=== PATIENT | male | born 1990 | race Caucasian/White ===

== ENCOUNTER 2017-03-25 00:14 | Emergency (ER) | payer SELFPAY | END 2017-03-25 00:30 | disposition left against medical advice (07) | LOC: D.ER 00:14 | DX: F19.939 Other psychoactive substance use, unspecified with withdrawal, unspecified (principal) ==

== ENCOUNTER 2017-06-13 10:49 | Emergency (ER) | payer SELFPAY | END 2017-06-13 14:35 | disposition home or self-care (01) | LOC: D.ER 10:49 | DX: T14.8 Other injury of unspecified body region (principal); V86.59XA Driver of other special all-terrain or other off-road motor vehicle injured in nontraffic accident, initial encounter; Y93.89 Activity, other specified; Y92.89 Other specified places as the place of occurrence of the external cause; S80.01XA Contusion of right knee, initial encounter; S16.1XXA Strain of muscle, fascia and tendon at neck level, initial encounter; F17.200 Nicotine dependence, unspecified, uncomplicated ==

== ENCOUNTER 2017-08-19 10:11 | Emergency (ER) | payer SELFPAY ==
[2017-08-19 11:53] LABS: APPEARANCE TURBID (CLEAR); BACTERIA MANY /hpf (NONE SEEN); BILIRUBIN NEGATIVE (NEGATIVE); CALCIUM OXALATE CRYSTALS 0-5 /hpf (NONE SEEN); COLOR DK YELLOW (YELLOW); EPITHELIAL CELLS 0-5 /hpf (0-5); GLUCOSE NEGATIVE (NEGATIVE); KETONE NEGATIVE (NEGATIVE); MUCUS <1+ /lpf (NONE SEEN); NITRITE NEGATIVE (NEGATIVE); PROTEIN NEGATIVE (NEGATIVE); SPECIFIC GRAVITY 1.025 (1.005-1.020); WHITE CELLS - URINE >50 /hpf (0-5)
== END 2017-08-19 11:30 | disposition home or self-care (01) ==
LOC: D.ER 10:11
PROVIDERS: Physician Assistant
DX: N34.2 Other urethritis (principal); F17.200 Nicotine dependence, unspecified, uncomplicated

== ENCOUNTER 2018-06-11 10:27 | Emergency (ER) | payer OTHER ==
[~2018-06-11] VITALS: Ht 182.9 cm; Wt 68.2 kg
[2018-06-11 10:32] VITALS: Ht 182.9 cm; Wt 68.2 kg
[2018-06-11] MEDS ORDERED: PENICILLIN V P500 MG PO (13:34)
[2018-06-11] MEDS ORDERED: IBUPROFEN800 MG PO (13:34)
[2018-06-11] MEDS ORDERED: CYCLOBENZAPRINE10 MG PO (13:34)
[2018-06-11] MEDS ORDERED: ACETAMINOPHEN500 M1 PO (13:34)
[2018-06-11 13:43] VITALS: BP 125/78
== END 2018-06-11 13:57 | disposition home or self-care (01) ==
LOC: D.ER 10:27
DX: S02.5XXA Fracture of tooth (traumatic), initial encounter for closed fracture (principal); X58.XXXA Exposure to other specified factors, initial encounter; Y93.89 Activity, other specified; Y92.89 Other specified places as the place of occurrence of the external cause; K04.7 Periapical abscess without sinus; K08.89 Other specified disorders of teeth and supporting structures; F17.200 Nicotine dependence, unspecified, uncomplicated

== ENCOUNTER 2018-06-12 08:22 | Emergency (ER) | payer OTHER ==
[~2018-06-12] VITALS: Ht 182.9 cm; Wt 68.2 kg
[~2018-06-12 08:22] MED LIST: ACETAMINOPHEN500 M1 PO; CYCLOBENZAPRINE10 MG PO; IBUPROFEN800 MG PO; PENICILLIN V P500 MG PO
[2018-06-12 08:33] VITALS: BP 124/87; Ht 182.9 cm; Wt 68.2 kg
== END 2018-06-12 09:33 | disposition other institution (70) ==
LOC: D.ER 08:22
DX: K04.7 Periapical abscess without sinus (principal); K08.89 Other specified disorders of teeth and supporting structures; F17.200 Nicotine dependence, unspecified, uncomplicated

== ENCOUNTER 2018-12-30 09:27 | Emergency (ER) | payer OTHER ==
[~2018-12-30] VITALS: Ht 182.9 cm; Wt 70.5 kg
[2018-12-30 09:35] VITALS: Ht 182.9 cm; Wt 70.5 kg
[2018-12-30 10:11] LABS: BASOPHILS 0.1 % (0-2); HEMATOCRIT 39.7 % (42.0-54.0); HEMOGLOBIN 13.6 g/dL (13.5-17.5); IMMATURE GRANULOCYTES 0.1 % (0-5); LYMPHOCYTES 17.9 % (15-50); MCH 29.4 pg (26.0-34.0); MCHC 34.3 g/dL (31.0-37.0); MCV 85.7 fL (80.0-100.0); MEAN PLATELET VOLUME 10.1 fL (7.4-10.4); MONOCYTES 10.2 % (2-11); NEUTROPHILS 70.7 % (40-80); PLATELET COUNT 201 10x3/uL (130-400); RBC 4.63 10x6/uL (4.20-6.10); RDW 13.3 % (11.5-14.5); WBC 14.9 10x3/uL (4.8-10.8)
[2018-12-30 10:18] LABS: ALBUMIN 4.1 g/dL (3.4-5.0); ALKALINE PHOSPHATASE 60 U/L (46-116); ALT (SGPT) 26 U/L (10-68); BILIRUBIN - TOTAL 0.74 mg/dL (0.2-1.3); CALC OSMOLALITY 279 mosm/kg (275-300); CALCIUM 8.9 mg/dL (8.5-10.1); CARBON DIOXIDE 26.6 mmol/L (21.0-32.0); CHLORIDE - SERUM 102 mmol/L (98-107); CREATININE - SERUM 1.1 mg/dL (0.6-1.3); GLUCOSE 93 mg/dL (74-106); POTASSIUM - SERUM 4.2 mmol/L (3.5-5.1); PROTEIN - SERUM 8.1 g/dL (6.4-8.2); SODIUM 140 mmol/L (136-145); UREA NITROGEN 14 mg/dL (7-18); eGFR NON AFRICAN AMERICAN 84 mL/min (90-120)
[2018-12-30] MEDS ORDERED: TYLENOL W/CODEI1 TAB PO (11:16)
[2018-12-30] MEDS ORDERED: CLEOCIN HCL300 MG PO (11:16)
[2018-12-30] MEDS ORDERED: VOLTAREN75 MG PO (11:16)
[2018-12-30 13:47] VITALS: BP 141/88
== END 2018-12-30 13:36 | disposition home or self-care (01) ==
LOC: D.ER 09:27
PROVIDERS: Family Medicine
DX: L03.113 Cellulitis of right upper limb (principal); S61.411A Laceration without foreign body of right hand, initial encounter; Y04.2XXA Assault by strike against or bumped into by another person, initial encounter; Y93.89 Activity, other specified; Y92.89 Other specified places as the place of occurrence of the external cause; F17.200 Nicotine dependence, unspecified, uncomplicated

== ENCOUNTER 2019-01-17 06:51 | Emergency (ER) | payer OTHER ==
[~2019-01-17] VITALS: Ht 182.9 cm; Wt 68.2 kg
[~2019-01-17 06:51] MED LIST changes: +CLEOCIN HCL300 MG PO; +TYLENOL W/CODEI1 TAB PO; +VOLTAREN75 MG PO
[2019-01-17 07:06] VITALS: Ht 182.9 cm; Wt 68.2 kg
[2019-01-17 08:11] LABS: BASOPHILS 0.4 % (0-2); EOSINOPHILS 3.5 % (0-7); HEMATOCRIT 41.1 % (42.0-54.0); HEMOGLOBIN 14.2 g/dL (13.5-17.5); IMMATURE GRANULOCYTES 0.2 % (0-5); LYMPHOCYTES 16.5 % (15-50); MCH 29.8 pg (26.0-34.0); MCHC 34.5 g/dL (31.0-37.0); MCV 86.2 fL (80.0-100.0); MEAN PLATELET VOLUME 9.4 fL (7.4-10.4); MONOCYTES 8.7 % (2-11); NEUTROPHILS 70.7 % (40-80); PLATELET COUNT 232 10x3/uL (130-400); RBC 4.77 10x6/uL (4.20-6.10); RDW 14.1 % (11.5-14.5); WBC 9.5 10x3/uL (4.8-10.8)
[2019-01-17 08:25] LABS: ALKALINE PHOSPHATASE 69 U/L (46-116); ALT (SGPT) 26 U/L (10-68); BILIRUBIN - TOTAL 0.37 mg/dL (0.2-1.3); CALC OSMOLALITY 274 mosm/kg (275-300); CALCIUM 9.1 mg/dL (8.5-10.1); CARBON DIOXIDE 25.2 mmol/L (21.0-32.0); CHLORIDE - SERUM 100 mmol/L (98-107); CREATININE - SERUM 0.9 mg/dL (0.6-1.3); GLUCOSE 112 mg/dL (74-106); POTASSIUM - SERUM 4.6 mmol/L (3.5-5.1); PROTEIN - SERUM 8.5 g/dL (6.4-8.2); SODIUM 137 mmol/L (136-145); UREA NITROGEN 12 mg/dL (7-18); eGFR NON AFRICAN AMERICAN > 90 mL/min (90-120)
[2019-01-17] MEDS ORDERED: CLEOCIN HCL300 MG PO (08:31)
[2019-01-17 09:22] VITALS: BP 156/90
[2019-01-18] MEDS ORDERED: AUGMENTIN 875-11 TAB PO (15:56)
[2019-01-19] MEDS ORDERED: HYDROCODON-ACE1 EAC2 PO (19:28)
== END 2019-01-17 09:23 | disposition home or self-care (01) ==
LOC: D.ER 06:51
PROVIDERS: Family Medicine
DX: M00.9 Pyogenic arthritis, unspecified (principal)

== ENCOUNTER → 2019-01-19 12:10 | Day surgery (SDC) | payer OTHER ==
[~2019-01-19] VITALS: Ht 177.8 cm; Wt 68.0 kg
[~2019-01-19 12:10] MED LIST changes: +AUGMENTIN 875-11 TAB PO; +HYDROCODON-ACE1 EAC2 PO
[2019-01-19 13:11] VITALS: Ht 177.8 cm; Wt 68.0 kg
--- NOTE | 2019-01-19 21:02 | NUR ---
NO BEDS AVAILABLE ON THE FLOOR. PATIENT MET DISCHARGE CRITERIA IN PACU AT 2044. PATIENT WENT TO PHASE TWO IN PACU. EMA SHARMA FROM O/P BROUGHT OVER DISCHARGE PAPERWORK. PATIENT WAS THEN DISCHARGE HOME VIA WHEELCHAIR BY THOMAS BLAIR RN AND KEVIN FERNANDEZ RN. PATIENT VERBALIZED FULL UNDERSTANDING OF DISCHARGE INSTRUCTIONS. PATIENT WILL FOLLOW UP WITH DR. CHAMBERS IN TWO WEEKS.
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
== END | disposition home or self-care (01) ==
LOC: D.OPS 12:10 → D.PAN 14:45
PROVIDERS: ATTEND Orthopaedic Surgery
DX: M00.841 Arthritis due to other bacteria, right hand (principal); Z01.812 Encounter for preprocedural laboratory examination